=== PATIENT | male | born 1995 | race Two or more races ===

== ENCOUNTER 2023-11-18 00:03 | Emergency (ER) | payer SELFPAY ==
[~2023-11-18] VITALS: Ht 170.2 cm; Wt 113.7 kg
[2023-11-18] MEDS ORDERED: MORPHINE SULFATE INJ 2 MG/ml SYRG IM ONE (01:00)
[2023-11-18] MEDS ORDERED: DICYCLOMINE HCL (10MG/ML) 2 ML AMPULE IM ONE (01:00)
[2023-11-18] MEDS ORDERED: ONDANSETRON HCL 4 MG/2 ML VIAL IM ONE (01:00)
[2023-11-18] MEDS: IOHEXOL 300 MG/ML 100ML BOTTLE IJ ONE (01:32)
[2023-11-18 01:50] VITALS: PULSE 112; RESP 17; TEMP 99.1; O2SAT 98
[2023-11-18 01:59] LABS: Basophils # (auto) 0 10 ^3/uL (0-0.2); Basophils % (auto) 0.2 % (0.0-2.0); Eosinophils # (auto) 0 10 ^3/uL (0-0.8); Eosinophils % (auto) 0.1 % (0.0-7.0); Hematocrit 48.7 % (41.0-53.0); Hemoglobin 16.7 g/dL (13.5-17.5); Lymphocytes # (auto) 1.5 10 ^3/uL (0.4-5.4); Lymphocytes % (auto) 6.7 % (10.0-50.0); Mean Corpuscular Hemoglobin 32.5 pg (28.0-32.0); Mean Corpuscular Hgb Conc. 34.3 g/dL (32.0-36.0); Mean Corpuscular Volume 94.6 fL (80.0-100.0); Monocytes # (auto) 2.6 10 ^3/uL (0-1.3); Monocytes % (auto) 11.9 % (0.0-12.0); Neutrophils % (auto) 81.1 % (37.0-80.0); Platelet Count (auto) 321 10^3/uL (140-450); Red Blood Cells 5.15 10^6/uL (4.5-5.90); Red Cell Distribution Width 13.8 % (11.8-14.3); White Blood Cell 22.2 10^3/uL (4.4-10.8)
[2023-11-18 02:15] LABS: Alanine Aminotransferase 66 U/L (7-40); Alkaline Phosphatase 96 U/L (46-116); Anion Gap 12 (5-15); Aspartate Aminotransferase 51 U/L (13-40); BUN/Creatinine Ratio 6.8 (10.0-20.0); Bilirubin, Total 0.6 mg/dL (0.2-1.0); Blood Urea Nitrogen 6 mg/dL (9-23); Calcium 9.8 mg/dL (8.7-10.4); Carbon Dioxide 25 mmol/L (20-30); Chloride 97 mmol/L (98-107); Glucose 109 mg/dL (74-106); Potassium 3.4 mmol/L (3.5-5.1); Sodium 134 mmol/L (136-145); Total Protein 8.3 g/dL (5.7-8.2)
[2023-11-18] MEDS ORDERED: MAALOX PLUS or MAALOX 30 ML PO ONE (02:45)
[2023-11-18 03:20] VITALS: PULSE 112; RESP 17; O2SAT 98
[2023-11-18] MEDS: MAALOX PLUS or MAALOX 30 ML PO ONE (04:03)
[2023-11-18] MEDS: ONDANSETRON HCL 4 MG/2 ML VIAL IV ONE (04:03)
[2023-11-18] MEDS: MORPHINE SULFATE 4 MG/ML SYR/VIAL IV ONE (04:05)
[2023-11-18] MEDS: DICYCLOMINE HCL (10MG/ML) 2 ML AMPULE IM ONE (04:05)
[2023-11-18] MEDS ORDERED: PANT40TA2 PO (04:42)
[2023-11-18 06:28] VITALS: BP 111/69; PULSE 94; RESP 25; O2SAT 93
[2023-11-18 13:12] LABS: Lipase 34 U/L (12-53)
== END 2023-11-18 07:10 | disposition home or self-care (01) ==
LOC: ER 00:03
DX: K92.2 Gastrointestinal hemorrhage, unspecified (principal); F10.10 Alcohol abuse, uncomplicated; F12.90 Cannabis use, unspecified, uncomplicated; Y90.9 Presence of alcohol in blood, level not specified
CPT/HCPCS: 36415; 74176; 80053; 80320; 83690; 85025; 96372; 96374; 96375; 99285; J0500; J2270; J2405

== ENCOUNTER 2023-11-19 08:02 | Inpatient (IN) | payer SELFPAY ==
[~2023-11-19] VITALS: Ht 170.2 cm; Wt 113.6 kg
[~2023-11-19 08:02] MED LIST: PANT40TA2 PO
[2023-11-19] MEDS ORDERED: SODIUM CHLORIDE 0.9% 1,000 ML IV ONE (08:15)
[2023-11-19] MEDS: SODIUM CHLORIDE 0.9% 1,000 ML IV ONE (08:15)
[2023-11-19] MEDS: SODIUM CHLORIDE 0.9% 1,000 ML IVB ONE (08:42)
[2023-11-19] MEDS: ONDANSETRON HCL 4 MG/2 ML VIAL IV ONE ×2 (09:10→13:07)
[2023-11-19] MEDS: PANTOPRAZOLE 40 MG/10 ML VIAL INJ IV ONE (09:10)
[2023-11-19 09:11] LABS: Basophils # (auto) 0 10 ^3/uL (0-0.2); Basophils % (auto) 0.2 % (0.0-2.0); Eosinophils # (auto) 0 10 ^3/uL (0-0.8); Hematocrit 47.4 % (41.0-53.0); Hemoglobin 16.6 g/dL (13.5-17.5); Lymphocytes # (auto) 1.4 10 ^3/uL (0.4-5.4); Lymphocytes % (auto) 7.8 % (10.0-50.0); Mean Corpuscular Hemoglobin 32.5 pg (28.0-32.0); Mean Corpuscular Hgb Conc. 34.9 g/dL (32.0-36.0); Mean Corpuscular Volume 93.1 fL (80.0-100.0); Monocytes # (auto) 1.5 10 ^3/uL (0-1.3); Monocytes % (auto) 8.7 % (0.0-12.0); Neutrophils # (auto) 14.7 10 ^3/uL (1.6-8.6); Neutrophils % (auto) 83.3 % (37.0-80.0); Nucleated Red Blood Cells % 0.1 %; Platelet Count (auto) 271 10^3/uL (140-450); Red Blood Cells 5.09 10^6/uL (4.5-5.90); Red Cell Distribution Width 13.7 % (11.8-14.3); White Blood Cell 17.6 10^3/uL (4.4-10.8)
[2023-11-19] MEDS: MORPHINE SULFATE 4 MG/ML SYR/VIAL IV ONE ×2 (09:11→13:07)
[2023-11-19 09:18] LABS: Alanine Aminotransferase 71 U/L (7-40); Albumin 4.8 g/dL (3.2-4.8); Alkaline Phosphatase 95 U/L (46-116); Anion Gap 11 (5-15); Aspartate Aminotransferase 55 U/L (13-40); BUN/Creatinine Ratio 6.6 (10.0-20.0); Bilirubin, Total 0.6 mg/dL (0.2-1.0); Blood Urea Nitrogen 6 mg/dL (9-23); Calcium 9.7 mg/dL (8.7-10.4); Carbon Dioxide 26 mmol/L (20-30); Chloride 92 mmol/L (98-107); Glucose 113 mg/dL (74-106); Lipase 34 U/L (12-53); Potassium 2.9 mmol/L (3.5-5.1); Total Protein 8.2 g/dL (5.7-8.2)
[2023-11-19 09:21] LABS: Sodium 129 mmol/L (136-145)
[2023-11-19 11:42] LABS: Lactic Acid w/Reflex 2.6 mmol/L (0.4-2.0)
[2023-11-19] MEDS: cefTRIAXone 1GM/50ML D5W 50 ML IV ONE (12:05)
[2023-11-19 12:09] VITALS: PULSE 102; RESP 21; O2SAT 99
[2023-11-19] MEDS: metroNIDAZOLE 500MG/100ML 100 ML IV ONE (12:19)
[2023-11-19] MEDS ORDERED: SODIUM CHLORIDE 0.9% 1,000 ML IV SCH (16:00)
[2023-11-19] MEDS ORDERED: POTASSIUM CHL 20MEQ/100ML 100 ML IV SCH (16:00)
[2023-11-19] MEDS ORDERED: MORPHINE SULFATE INJ 2 MG/ml SYRG IV PRN (16:00)
[2023-11-19 16:48] LABS: INR 1.22 (0.9-1.15); Prothrombin Time 12.7 sec (9.3-11.8)
[2023-11-19 16:54] VITALS: BP 105/63; PULSE 85; RESP 17; TEMP 98.4; O2SAT 96
[2023-11-19] MEDS ORDERED: metroNIDAZOLE 500MG/100ML 100 ML IV SCH (22:00)
[2023-11-20] MEDS ORDERED: cefTRIAXone 1GM/50ML D5W 50 ML IV SCH (09:00)
== END 2023-11-19 17:03 | disposition left against medical advice (07) | DRG 379 ==
LOC: ER 08:02 → EDBD 08:02 → OVERFLOW 15:59
PROVIDERS: ADMIT Registered Nurse General Practice; ATTEND Registered Nurse General Practice
DX: K29.01 Acute gastritis with bleeding (principal); E87.6 Hypokalemia; R16.2 Hepatomegaly with splenomegaly, not elsewhere classified; Z53.29 Procedure and treatment not carried out because of patient's decision for other reasons; Z87.11 Personal history of peptic ulcer disease
CPT/HCPCS: 36415; 80053; 83605; 83690; 83735; 85025; 85610; G0378; J2405; J2470; J3490